=== PATIENT | female | born 1965 | race Two or more races ===

== ENCOUNTER 2019-10-16 12:29 | Inpatient (IN) | payer OTHER ==
[~2019-10-16] VITALS: Ht 167.6 cm; Wt 62.3 kg
--- NOTE | 2019-10-16 13:05 | NUR ---
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
--- NOTE | 2019-10-16 13:30 | NUR ---
.PT C/O N/V/D SINCE YESTERDAY WITH BLOOD IN EMESIS AND STOOL PER PT. PT REPORTS HAVING MORE THAN 9 EPISODES OF DIARRHEA SINCE YESTERDAY. PT ON MONITOR. WAITING FOR MD ORDERS. PT REPORTS LAT DRINK WAS ONE WEEK AGO. PT HAS HX OF GI BLEEDS IN THE PAST, LAST ABOUT 5 YEARS AGO.
[2019-10-16] MEDS ORDERED: SODIUM CHLORIDE FLUSH 10ML SYR IVF ONE (14:30)
--- NOTE | 2019-10-16 14:30 | NUR ---
PT RESTING IN NAD. WAITING FOR RESULTS.
[2019-10-16 14:45] LABS: INTERNATIONAL NORMALIZED RATIO 1.56 (0.93-1.1); PROTHROMBIN TIME 16.1 Seconds (9.6-11.5)
[2019-10-16 14:47] LABS: ALBUMIN 2.9 g/dL (3.4-5.0); ANION GAP 8 mmol/L (5-15); CALCIUM 8.1 mg/dL (8.5-10.1); CHLORIDE 110 mmol/L (98-107)
[2019-10-16 14:50] LABS: ALANINE AMINOTRANSFERASE 37 U/L (12-78); ALKALINE PHOSPHATASE 103 U/L (45-117); BILIRUBIN,TOTAL 1.8 mg/dL (0.2-1.0); TOTAL PROTEIN 5.9 g/dL (6.4-8.2)
[2019-10-16 15:19] LABS: MEAN CORPUSCULAR HEMOGLOBIN 27.6 pg (27.0-34.8); MEAN CORPUSCULAR HGB CONC 33.2 g/dL (32.4-35.8); MEAN CORPUSCULAR VOLUME 83.1 fL (80-100); MEAN PLATELET VOLUME 9.6 fL (7.4-10.4); PLATELET COUNT 106 x10^3/uL (130-400); RED BLOOD COUNT 3.48 x10^6/uL (3.82-5.3); RED CELL DISTRIBUTION WIDTH 22.5 % (9.6-15.2)
[2019-10-16 15:20] LABS: MD YES
--- NOTE | 2019-10-16 15:30 | NUR ---
PT RESTING IN NAD. VSS.
[2019-10-16 15:50] LABS: BAND#(MANUAL) 0.63 x10^3/uL; BANDS%(MANUAL) 5 % (0-7); EOS#(MANUAL) 0.13 x10^3/uL (0.0-0.4); EOS% (MANUAL) 1 % (1-7); LYMPH#(MANUAL) 1.51 x10^3/uL (1-3.4); LYMPHS% (MANUAL) 12 % (22-44); MONOS#(MANUAL) 0.25 x10^3/uL (0.3-2.7); MONOS% (MANUAL) 2 % (2-9); SEG#(MANUAL) 10.08 x10^3/uL (1.8-6.8); SEGS% (MANUAL) 80 % (42-75)
[2019-10-16 15:51] LABS: <PLATELET ESTIMATE> DECREASED; <PLT MORPHOLOGY> NORMAL PLT MORPH; ANISOCYTOSIS 1+; HYPOCHROMIA 1+; OVALOCYTES 1+; POLYCHROMASIA 1+
[2019-10-16] MEDS ORDERED: PANTOPRAZOLE 80 MG in SODIUM CHLORIDE 0.9% 50 ML IV ONE (16:00)
--- NOTE | 2019-10-16 16:30 | NUR ---
PT UP TO RESTROOM WITH MINIMAL ASSIZTANCE GIVEN BY FAMILY MEMBER.
[2019-10-16] MEDS ORDERED: CEFTRIAXONE PMX 1GM/50ML 50 ML ONE (16:41)
[2019-10-16] MEDS ORDERED: ONDANSETRON 2MG/ML, 2ML IVPush PRN (17:00)
[2019-10-16] MEDS ORDERED: morphine SULFATE 10 MG/ML, 1ML IVPush PRN (17:00)
[2019-10-16] MEDS: OCTREOTIDE 500 MCG in SODIUM CHLORIDE 0.9% 249 ML IV SCH (17:01)
[2019-10-16] MEDS: CEFTRIAXONE PMX 1GM/50ML 50 ML IV SCH (17:03)
[2019-10-16] MEDS ORDERED: TRAZ50TA66 PO (17:04)
--- NOTE | 2019-10-16 17:25 | NUR ---
REPORT TO VALERIE ON MED TELE. VALERIE AWARE OF NEED TO START PROTONIX DRIP ONCE ROCEPHIN HAS INFUSED.
[2019-10-16 17:35] VITALS: BP 106/73
[2019-10-16] MEDS: PANTOPRAZOLE 80 MG in SODIUM CHLORIDE 0.9% 100 ML IV SCH (17:49)
[2019-10-16] MEDS: D5%-0.45NACL+KCL 20MEQ 1,000 ML IV SCH (18:33)
[2019-10-16 20:41] VITALS: BP 104/69
[2019-10-16 21:51] VITALS: BP 108/65
[2019-10-16 23:17] VITALS: BP 94/61
[2019-10-17] VITALS (12 sets, daily range): BP systolic 88–110; BP diastolic 58–70
[2019-10-17] MEDS: D5%-0.45NACL+KCL 20MEQ 1,000 ML IV SCH ×3 (01:12→17:58)
[2019-10-17] MEDS: PANTOPRAZOLE 80 MG in SODIUM CHLORIDE 0.9% 100 ML IV SCH ×3 (03:07→22:09)
[2019-10-17] MEDS: OCTREOTIDE 500 MCG in SODIUM CHLORIDE 0.9% 249 ML IV SCH ×2 (03:08→15:42)
[2019-10-17 06:33] LABS: ANION GAP 5 mmol/L (5-15); CALCIUM 7.5 mg/dL (8.5-10.1); CHLORIDE 113 mmol/L (98-107)
[2019-10-17] MEDS ORDERED: PHYTONADIONE 10 MG/ML, 1ML SQ ONE (07:30)
[2019-10-17] MEDS ORDERED: PROPOFOL 100 ML ONE (13:44)
[2019-10-17] MEDS: CEFTRIAXONE PMX 1GM/50ML 50 ML IV SCH (15:46)
[2019-10-17] MEDS ORDERED: TRAZODONE 50MG TABLET PO PRN (16:30)
[2019-10-17] MEDS ORDERED: PANTOPRAZOLE 40 MG IV IVPush SCH (17:00)
[2019-10-17] MEDS ORDERED: THIAMINE 200 MG in SODIUM CHLORIDE 0.9% 50 ML IV ONE (20:00)
[2019-10-18 01:45] VITALS: BP 112/69
[2019-10-18] MEDS: OCTREOTIDE 500 MCG in SODIUM CHLORIDE 0.9% 249 ML IV SCH ×3 (01:58→22:37)
[2019-10-18 04:49] LABS: INTERNATIONAL NORMALIZED RATIO 1.4 (0.93-1.1); PROTHROMBIN TIME 14.5 Seconds (9.6-11.5)
[2019-10-18 04:50] LABS: ALBUMIN 2.8 g/dL (3.4-5.0); ANION GAP 5 mmol/L (5-15); CALCIUM 7.6 mg/dL (8.5-10.1); CHLORIDE 113 mmol/L (98-107)
[2019-10-18 04:54] LABS: ALANINE AMINOTRANSFERASE 38 U/L (12-78); ALKALINE PHOSPHATASE 91 U/L (45-117); BILIRUBIN,TOTAL 1.4 mg/dL (0.2-1.0); CREATININE 0.59 mg/dL (0.55-1.02); TOTAL PROTEIN 5.5 g/dL (6.4-8.2)
[2019-10-18 06:25] LABS: MEAN CORPUSCULAR HEMOGLOBIN 28.4 pg (27.0-34.8); MEAN CORPUSCULAR HGB CONC 33.8 g/dL (32.4-35.8); MEAN CORPUSCULAR VOLUME 83.9 fL (80-100); MEAN PLATELET VOLUME 8.8 fL (7.4-10.4); PLATELET COUNT 63 x10^3/uL (130-400); RED BLOOD COUNT 3.61 x10^6/uL (3.82-5.3)
[2019-10-18 06:27] LABS: BASOPHILS # (AUTO) 0.02 x10^3/uL (0-0.1); BASOPHILS % (AUTO) 0 % (0-1); EOSINOPHILS % (AUTO) 4 % (1-7); LYMPHOCYTES # (AUTO) 2.05 x10^3/uL (1-3.4); LYMPHOCYTES % (AUTO) 37 % (22-44); MD SCAN; MONOCYTES # (AUTO) 0.31 x10^3/uL (0.2-0.8); MONOCYTES % (AUTO) 6 % (2-9); NEUTROPHILS # (AUTO) 2.99 x10^3/uL (1.8-6.8); NEUTROPHILS % (AUTO) 54 % (42-75)
[2019-10-18] MEDS: PANTOPRAZOLE 80 MG in SODIUM CHLORIDE 0.9% 100 ML IV SCH (08:00)
[2019-10-18 08:25] VITALS: BP 117/67
[2019-10-18 12:14] VITALS: BP 117/74
[2019-10-18] MEDS: CEFTRIAXONE PMX 1GM/50ML 50 ML IV SCH (16:26)
[2019-10-18 19:42] VITALS: BP 115/77
[2019-10-18] MEDS ORDERED: THIAMINE 100 MG in SODIUM CHLORIDE 0.9% 50 ML IV SCH (20:00)
[2019-10-19 00:36] VITALS: BP 112/57
[2019-10-19 06:53] LABS: ANION GAP 5 mmol/L (5-15); CALCIUM 7.9 mg/dL (8.5-10.1); CHLORIDE 112 mmol/L (98-107); CREATININE 0.61 mg/dL (0.55-1.02)
[2019-10-19 06:54] LABS: MEAN CORPUSCULAR HEMOGLOBIN 28.8 pg (27.0-34.8); MEAN CORPUSCULAR HGB CONC 33.8 g/dL (32.4-35.8); MEAN CORPUSCULAR VOLUME 85.1 fL (80-100); RED BLOOD COUNT 3.44 x10^6/uL (3.82-5.3)
[2019-10-19 07:15] LABS: BASOPHILS % (AUTO) 0 % (0-1); EOSINOPHILS # (AUTO) 0.08 x10^3/uL (0-0.4); EOSINOPHILS % (AUTO) 2 % (1-7); LYMPHOCYTES # (AUTO) 1.04 x10^3/uL (1-3.4); LYMPHOCYTES % (AUTO) 27 % (22-44); MD SCAN; MEAN PLATELET VOLUME 8.4 fL (7.4-10.4); MONOCYTES # (AUTO) 0.24 x10^3/uL (0.2-0.8); MONOCYTES % (AUTO) 6 % (2-9); NEUTROPHILS # (AUTO) 2.56 x10^3/uL (1.8-6.8); NEUTROPHILS % (AUTO) 65 % (42-75); PLATELET COUNT 56 x10^3/uL (130-400)
[2019-10-19] MEDS ORDERED: CEFD300C37 PO (08:40)
[2019-10-19 08:42] VITALS: BP 136/84
[2019-10-19] MEDS ORDERED: PANT40TA5 PO (08:51)
[2019-10-19] MEDS: OCTREOTIDE 500 MCG in SODIUM CHLORIDE 0.9% 249 ML IV SCH (09:35)
[2019-10-19 13:30] VITALS: BP 117/75
== END 2019-10-19 14:39 | disposition home or self-care (01) | DRG 432 ==
LOC: ED 14:26 → EDIP 15:40 → 4WST 17:30
PROVIDERS: ADMIT Internal Medicine; ATTEND Internal Medicine Infectious Disease
PROC: 30233N1 Transfusion of Nonautologous Red Blood Cells into Peripheral Vein, Percutaneous Approach (ICD-10-PCS; 2019-10-17)
PROC: 06L38CZ Occlusion of Esophageal Vein with Extraluminal Device, Via Natural or Artificial Opening Endoscopic (ICD-10-PCS; principal; 2019-10-17 13:30)
DX: K70.30 Alcoholic cirrhosis of liver without ascites (principal); I85.11 Secondary esophageal varices with bleeding; D62 Acute posthemorrhagic anemia; D68.9 Coagulation defect, unspecified; K76.6 Portal hypertension; D69.59 Other secondary thrombocytopenia; F10.20 Alcohol dependence, uncomplicated; Y90.9 Presence of alcohol in blood, level not specified; F12.90 Cannabis use, unspecified, uncomplicated; F17.210 Nicotine dependence, cigarettes, uncomplicated; Z88.0 Allergy status to penicillin; K31.89 Other diseases of stomach and duodenum; K80.20 Calculus of gallbladder without cholecystitis without obstruction; N20.0 Calculus of kidney; Z80.6 Family history of leukemia; Z82.5 Family history of asthma and other chronic lower respiratory diseases
CPT/HCPCS: 36415; 74022; 80048; 80053; 82105; 83690; 85014; 85018; 85025; 85610; 86850; 86900; 86923; 93005; 93975; 99285; G0378; J0696; J2354; J2405; J2704; J3411; J3430; C9113; J2270; J3480; J7050; P9016